=== PATIENT | female | born 1965 | race African-American/Black ===

== ENCOUNTER 2018-04-06 10:33 | Inpatient (IN) | payer MEDICARE, OTHER ==
[~2018-04-06] VITALS: Ht 165.1 cm; Wt 100.0 kg
[~2018-04-06 10:33] MED LIST: ALPR-395 PO; AMLO10TA80 PO; ARIP30TA2 PO; DULO60CA44 PO; FURO-152 PO; Fluticasone Propionate BOTHNSTRLS; LISI10TA5 PO; METF500T6 PO; POTA8TAB8 PO; PROT40 PO; SULF1TAB48 PO; TRAZ-132 MT
[2018-04-06] MEDS ORDERED: FAMOTIDINE 20MG/2ML VIAL IV ONE (11:00)
[2018-04-06] MEDS ORDERED: DIPHENHYDRAMINE 50MG/ML VIAL IV ONE (11:00)
[2018-04-06] MEDS ORDERED: DEXAMETHASONE 10 MG/ML VIAL IV ONE (11:00)
[2018-04-06 11:31] LABS: BASOPHILS % 0.5 % (0.0-2.0); EOSINOPHILS % 1.2 % (0.0-5.0); HEMATOCRIT. 36.7 % (36.0-48.0); HEMOGLOBIN. 11.7 g/dL (12.0-16.0); LYMPHOCYTES % 22.3 % (20.0-50.0); MEAN CORPUSCULAR HEMOGLOBIN 27.4 pg (28.0-32.0); MEAN CORPUSCULAR VOLUME 85.7 fL (81.0-99.0); MONOCYTES % 7.3 % (2.0-8.0); NEUTROPHILS % 68.7 % (40.0-76.0); PLATELET 244 x1000/uL (130-400); RED BLOOD CELL COUNT 4.28 mill/uL (4.2-5.4); RED CELL DISTRIBUTION WIDTH 15.4 % (11.6-14.6)
[2018-04-06 11:33] LABS: CHLORIDE 106 mEq/L (98-107)
[2018-04-06] MEDS ORDERED: KETOROLAC 30MG/ML VIAL IV ONE (14:15)
[2018-04-06] MEDS ORDERED: PANTOPRAZOLE SODIUM 40 MG/VIAL IV ONE (14:45)
[2018-04-06] MEDS ORDERED: MORPHINE SULFATE 2 MG/ML CPJ (NOT FOR IM USE) IV ONE (14:45)
[2018-04-06] MEDS ORDERED: ACETAMINOPHEN 325MG TABLET PO PRN (22:00)
[2018-04-06] MEDS ORDERED: ONDANSETRON HCL 4MG/2ML VIAL IV PRN (22:00)
[2018-04-06 23:14] VITALS: BP 156/82
[2018-04-06 23:30] VITALS: BP 149/98
[2018-04-07] VITALS (8 sets, daily range): BP systolic 124–143; BP diastolic 62–95
[2018-04-07] MEDS: LORAZEPAM 2MG/ML CPJ IV PRN ×3 (00:36→20:12)
[2018-04-07] MEDS: ENOXAPARIN 30MG/0.3ML SYR SUBCUT SCH ×2 (09:37→22:11)
[2018-04-07 12:09] LABS: CLARITY URINE CLEAR (CLEAR); COLOR URINE YELLOW (YELLOW); KETONES URINE NEGATIVE (NEGATIVE); LEUKOCYTE ESTERASE URINE TRACE (NEGATIVE); NITRITE URINE NEGATIVE (NEGATIVE); OCCULT BLOOD URINE NEGATIVE (NEGATIVE); PH URINE 6.5 (4.5-8.0); PROTEIN URINE NEGATIVE (NEGATIVE); SPECIFIC GRAVITY URINE 1.016 (1.005-1.030); UROBILINOGEN URINE 0.2 E.U./dL (0.2-1.0)
[2018-04-07 12:10] LABS: *AMPHETAMINES SCREEN URINE NEGATIVE (NEGATIVE); *BARBITURATES SCREEN URINE NEGATIVE (NEGATIVE); *BENZODIAZEPINES SCREEN URINE PRESUMTIVE POSITIVE (NEGATIVE); *COCAINE SCREEN URINE NEGATIVE (NEGATIVE); METHADONE URINE SCREEN NEGATIVE (NEGATIVE); OPIATES URINE SCREEN PRESUMTIVE POSITIVE (NEGATIVE)
[2018-04-07 12:11] LABS: CANNABINOID URINE SCREEN NEGATIVE (NEGATIVE); PHENCYCLIDINE URINE SCREEN NEGATIVE (NEGATIVE)
[2018-04-07] MEDS ORDERED: DEXTROSE 50% WATER 50ML SYRINGE IV PRN (13:15)
[2018-04-07] MEDS: AMLODIPINE 10MG TABLET PO SCH (13:24)
[2018-04-07] MEDS: DULOXETINE HCL 30MG DR CAPSULE PO SCH (13:25)
[2018-04-07] MEDS ORDERED: IPRATROPIUM/ALBUTEROL 0.5-3(2.5)MG/3ML NEB HHN PRN (14:15)
[2018-04-07] MEDS ORDERED: IOHEXOL-350 100 ML BOTTLE ONE (14:16)
[2018-04-07] MEDS: DIPHENHYDRAMINE 50MG/ML VIAL IV SCH ×2 (14:30→22:12)
[2018-04-07] MEDS: POTASSIUM CHLORIDE 8 MEQ TABLET.SA PO SCH ×2 (14:59→22:11)
[2018-04-07] MEDS: BLOOD SUGAR DIAGNOSTIC STRIP TEST SCH ×2 (17:50→21:00)
[2018-04-07] MEDS: MONTELUKAST SODIUM 10MG TABLET PO SCH (17:50)
[2018-04-07] MEDS: INSULIN LISPRO 100 UNITS/ML SUBCUT SCH ×2 (18:00→21:00)
[2018-04-07] MEDS: IPRATROPIUM/ALBUTEROL 0.5-3(2.5)MG/3ML NEB HHN SCH ×2 (18:02→20:48)
[2018-04-07] MEDS ORDERED: LORATADINE 10MG TABLET PO SCH (21:00)
[2018-04-07] MEDS: FAMOTIDINE 20MG/2ML VIAL IV SCH (22:11)
[2018-04-08] VITALS (10 sets, daily range): BP systolic 126–163; BP diastolic 41–99
[2018-04-08] MEDS: IPRATROPIUM/ALBUTEROL 0.5-3(2.5)MG/3ML NEB HHN SCH ×3 (01:32→13:09)
[2018-04-08] MEDS: DIPHENHYDRAMINE 50MG/ML VIAL IV SCH ×3 (02:02→14:30)
[2018-04-08] MEDS: LORAZEPAM 2MG/ML CPJ IV PRN (02:02)
[2018-04-08] MEDS: HYDROCODONE/ACETAMINOPHEN 5/325MG TABLET PO PRN ×2 (02:47→12:56)
[2018-04-08 06:57] LABS: BASOPHILS % 0.3 % (0.0-2.0); EOSINOPHILS % 0.1 % (0.0-5.0); HEMATOCRIT. 34.1 % (36.0-48.0); HEMOGLOBIN. 11.2 g/dL (12.0-16.0); LYMPHOCYTES % 19.4 % (20.0-50.0); MEAN CORPUSCULAR VOLUME 85.1 fL (81.0-99.0); MEAN PLATELET VOLUME 10.3 fl (7.4-10.4); MONOCYTES % 6.3 % (2.0-8.0); NEUTROPHILS % 73.9 % (40.0-76.0); PLATELET 242 x1000/uL (130-400); RED BLOOD CELL COUNT 4.01 mill/uL (4.2-5.4); RED CELL DISTRIBUTION WIDTH 15.5 % (11.6-14.6)
[2018-04-08] MEDS: INSULIN LISPRO 100 UNITS/ML SUBCUT SCH ×2 (07:48→12:47)
[2018-04-08] MEDS: BLOOD SUGAR DIAGNOSTIC STRIP TEST SCH ×2 (07:48→12:46)
[2018-04-08 09:23] LABS: CHLORIDE 107 mEq/L (98-107)
[2018-04-08 09:28] LABS: PHOSPHORUS 3.8 mg/dL (2.5-4.9)
[2018-04-08] MEDS: DULOXETINE HCL 30MG DR CAPSULE PO SCH (09:50)
[2018-04-08] MEDS: AMLODIPINE 10MG TABLET PO SCH (09:50)
[2018-04-08] MEDS: POTASSIUM CHLORIDE 8 MEQ TABLET.SA PO SCH ×2 (09:50→17:19)
[2018-04-08] MEDS: FAMOTIDINE 20MG/2ML VIAL IV SCH (09:50)
[2018-04-08] MEDS: ENOXAPARIN 30MG/0.3ML SYR SUBCUT SCH (09:51)
[2018-04-08] MEDS ORDERED: MAGNESIUM 2 G PREMIX 50 ML IV ONE (10:30)
[2018-04-08] MEDS ORDERED: POTASSIUM CHLORIDE 20MEQ TABLET SR PO NR (10:30)
[2018-04-08] MEDS ORDERED: MAGNESIUM SULFATE 2 GM in DEXTROSE 5% WATER 50 ML IV NR (12:00)
[2018-04-08] MEDS ORDERED: METHYLPREDNISOLONE SOD SUCC 40 MG/ML VIAL IV SCH (14:30)
[2018-04-08] MEDS: MONTELUKAST SODIUM 10MG TABLET PO SCH (17:19)
== END 2018-04-08 19:59 | disposition home or self-care (01) | DRG 916 ==
LOC: ER 10:33 → 5EST 17:33 → ENRESERV 19:51
PROVIDERS: ADMIT Internal Medicine; ATTEND Internal Medicine
DX: T78.3XXA Angioneurotic edema, initial encounter (principal); F31.30 Bipolar disorder, current episode depressed, mild or moderate severity, unspecified; G24.9 Dystonia, unspecified; E66.01 Morbid (severe) obesity due to excess calories; J45.909 Unspecified asthma, uncomplicated; I10 Essential (primary) hypertension; K57.90 Diverticulosis of intestine, part unspecified, without perforation or abscess without bleeding; K29.70 Gastritis, unspecified, without bleeding; D64.9 Anemia, unspecified; T43.595A Adverse effect of other antipsychotics and neuroleptics, initial encounter; E11.42 Type 2 diabetes mellitus with diabetic polyneuropathy; E11.65 Type 2 diabetes mellitus with hyperglycemia; T46.4X5A Adverse effect of angiotensin-converting-enzyme inhibitors, initial encounter; M54.9 Dorsalgia, unspecified; F11.10 Opioid abuse, uncomplicated; F13.10 Sedative, hypnotic or anxiolytic abuse, uncomplicated; I72.6 Aneurysm of vertebral artery; E78.00 Pure hypercholesterolemia, unspecified; E83.42 Hypomagnesemia; E87.6 Hypokalemia; G89.29 Other chronic pain; Z86.73 Personal history of transient ischemic attack (TIA), and cerebral infarction without residual deficits; Z79.899 Other long term (current) drug therapy; Z88.6 Allergy status to analgesic agent; Z79.84 Long term (current) use of oral hypoglycemic drugs; Z68.36 Body mass index [BMI] 36.0-36.9, adult; Z90.710 Acquired absence of both cervix and uterus; Z86.79 Personal history of other diseases of the circulatory system; Y92.098 Other place in other non-institutional residence as the place of occurrence of the external cause
CPT/HCPCS: 36415; 70496; 70544; 70553; 80048; 80053; 80305; 81003; 81025; 82962; 83735; 84100; 85025; 93005; 96374; 96375; 97162; 99285; C9113; J1100; J1200; J1650; J1885; J2060; J2270; J2920; J3475; J3490; J7030; J7040; J7060; J7620; Q9967

== ENCOUNTER 2021-07-10 16:28 | Emergency (ER) | payer MEDICARE, OTHER ==
[~2021-07-10] VITALS: Ht 172.7 cm; Wt 109.0 kg
[~2021-07-10 16:28] MED LIST changes: +ALPR0.5T; -ARIP30TA2 PO; +LISI-186; -LISI10TA5 PO; +METF-414; +METF-414 PO; -METF500T6 PO; -PROT40 PO; -SULF1TAB48 PO; -TRAZ-132 MT; +TRAZ-252 MT; +[UNRECOGNIZED DRUG - CODE]
[2021-07-10] MEDS ORDERED: HYDROCODONE/ACETAMINOPHEN 5/325MG TABLET PO ONE (17:45)
[2021-07-10 18:04] LABS: BASOPHILS % 0.7 % (0.0-2.0); EOSINOPHILS % 2.1 % (0.0-5.0); HEMATOCRIT. 35.2 % (36.0-48.0); HEMOGLOBIN. 11.4 g/dL (12.0-16.0); LYMPHOCYTES % 21.7 % (20.0-50.0); MEAN CORPUSCULAR HEMOGLOBIN 26.7 pg (28.0-32.0); MEAN CORPUSCULAR VOLUME 82.6 fL (81.0-99.0); MEAN PLATELET VOLUME 9.4 fl (7.4-10.4); MONOCYTES % 9.6 % (2.0-8.0); NEUTROPHILS % 65.9 % (40.0-76.0); PLATELET 290 x1000/uL (130-400); RED BLOOD CELL COUNT 4.25 mill/uL (4.2-5.4); RED CELL DISTRIBUTION WIDTH 14.6 % (11.6-14.6)
[2021-07-10 18:11] LABS: CHLORIDE 104 mEq/L (98-107)
[2021-07-10] MEDS ORDERED: MAGNESIUM OXIDE 400MG TABLET PO STA (19:01)
[2021-07-10 19:29] VITALS: BP 160/86
[2021-07-10 19:35] LABS: CLARITY URINE CLEAR (CLEAR); COLOR URINE YELLOW (YELLOW); KETONES URINE TRACE (NEGATIVE); LEUKOCYTE ESTERASE URINE NEGATIVE (NEGATIVE); NITRITE URINE NEGATIVE (NEGATIVE); OCCULT BLOOD URINE NEGATIVE (NEGATIVE); PH URINE 5.5 (4.5-8.0); PROTEIN URINE NEGATIVE (NEGATIVE); SPECIFIC GRAVITY URINE 1.017 (1.005-1.030); UROBILINOGEN URINE 0.2 E.U./dL (0.2-1.0)
== END 2021-07-10 20:12 | disposition home or self-care (01) ==
LOC: ER 16:28
DX: M54.9 Dorsalgia, unspecified (principal); M79.604 Pain in right leg; M79.605 Pain in left leg
CPT/HCPCS: 36415; 72100; 80053; 81003; 83735; 85025; 93970; 99285